=== PATIENT | female | born 1965 | race Asian ===

== ENCOUNTER → 2020-11-28 10:30 | Outpatient (CLI) | payer OTHER, SELFPAY ==
--- NOTE | ~2020-11-28 | US_ITS ---
EXAMINATION: US soft tissue head and neck EXAM DATE: 11/28/2020 10:46 INDICATION: Lymphadenopathy. Palpable area left side of neck for one year. TECHNIQUE: Multiple grayscale and Doppler images of the symptomatic left neck region were obtained (vianney craig a technologist who performed the scan) and subsequently reviewed. There is no prior study for darlene staley. FINDINGS: Scanning in the left neck region with palpable abnormality demonstrates a round well-circumscribed hy poechoic soft tissue nodule measuring 6 x 6 x 7 mm. No fatty hilum within this which would be expecte d for a reactive lymph node. IMPRESSION: Small round soft tissue nodule most likely lymph node with abnormal morphology. History o f this being unchanged for one year suggests more likely benign histology but neck CT with contrast i ndicated. Reviewed, dictated and finalized at location A. OND POWDER TECHNICIAN IMPRESSION: Small round soft tissue nodule most likely lymph node with abnormal morphology. History of this being unchanged for one year suggests more likely benign histology but neck CT with contrast indicated.
== END ==
PROVIDERS: PCP Emergency Medicine; Visit Provider Emergency Medicine
DX: R59.1 Generalized enlarged lymph nodes (principal)
CPT/HCPCS: 76536

== ENCOUNTER → 2020-12-09 13:58 | Outpatient (CLI) | payer OTHER, SELFPAY ==
--- NOTE | ~2020-12-09 | CT_ITS ---
EXAMINATION: CT soft tissue neck w con DATE: 12/09/2020 14:31 INDICATION: Lymphadenopathy. Left neck mass. TECHNIQUE: Computed tomography (CT) of the neck was performed with 75 mL Omnipaque-350 intravenous co ntrast. Automated exposure control and iterative reconstruction technique were employed. The dose-joi gth product was 353.13 mGy-cm. COMPARISON: Ultrasound 11/28/2020 FINDINGS: There are no pathologically enlarged lymph nodes. There is no visible plaque in the proxima l internal carotid arteries. There are calcifications in the palatine tonsils bilaterally. There is m ild cervical spondylosis. IMPRESSION: 1. No abnormal neck mass or lymphadenopathy. Reviewed, dictated and finalized at location B. DRIVER
== END ==
PROVIDERS: PCP Emergency Medicine; Visit Provider Emergency Medicine
DX: R59.1 Generalized enlarged lymph nodes (principal)
CPT/HCPCS: 70491; Q9967

== ENCOUNTER → 2021-01-23 14:59 | Outpatient (CLI) | payer OTHER, SELFPAY ==
--- NOTE | ~2021-01-23 | XR_ITS ---
EXAMINATION: XR chest 2V EXAM DATE: 01/23/2021 15:21 INDICATION: Cough. TECHNIQUE: Frontal and lateral projections of the chest obtained and reviewed. Comparison is made to prior examination from 12/27/2017. FINDINGS: The lungs are clear. There are no pleural effusions. The cardiomediastinal silhouette is within normal limits. There is no pneumothorax suspected. The bones and soft tissues are unremarkab le. IMPRESSION: No acute cardiopulmonary findings. Reviewed, dictated and finalized at location A. ND PLANNER
== END ==
PROVIDERS: PCP Emergency Medicine; Visit Provider Emergency Medicine
DX: R05 Cough (principal)
CPT/HCPCS: 71046

== ENCOUNTER → 2021-01-24 08:02 | Outpatient (CLI) | payer OTHER, SELFPAY ==
[2021-01-25 08:28] LABS: SARS-CoV-2 RNA PCR Negative
== END ==
PROVIDERS: PCP Emergency Medicine; Visit Provider Emergency Medicine
DX: R68.89 Other general symptoms and signs (principal); Z20.822 Contact with and (suspected) exposure to COVID-19
CPT/HCPCS: C9803; U0003; U0005

== ENCOUNTER → 2021-07-22 07:59 | Outpatient (CLI) | payer OTHER, SELFPAY ==
--- NOTE | ~2021-07-22 | US_ITS ---
EXAMINATION: US abdomen complete EXAM DATE: 07/22/2021 08:24 INDICATION: Hepatitis B, fatty liver. TECHNIQUE: Multiple grayscale and Doppler images of the complete abdomen were obtained (by a technolo reta who performed the scan) and subsequently reviewed. There is no prior study for comparison. FINDINGS: The abdominal aorta is normal in caliber. Visualized portion IVC is patent. The pancreatic head a nd body are normal in appearance. The pancreatic tail is not visualized. There is echogenic liver parenchyma, hepatic steatosis. There are no focal liver lesions identified. There is no evidence of intrahepatic biliary duct dilation. Portal venous flow was seen in the he patopedal, normal direction and has normal Doppler waveform. Common bile duct measures 3 mm, which is normal. The gallbladder wall is normal in thickness, with ex pected amount of distention. No sonographic evidence of pericholecystic fluid. There is no cholelit hiases. Technologist performing exam reports patient did not demonstrate sonographic Mary's sign. Please note that this sign is less reliable in patients who have received pain medication. Right kidney: There is normal contour and echogenicity. It measures 11.1 x 5.0 x 6.1 centimeters. There are no focal renal lesions identified. There is no hydronephrosis. Left kidney: There is normal contour and echogenicity. It measures 10.5 x 5.7 x 5.5 centimeters. T here are no focal renal lesions identified. There is no hydronephrosis. The spleen measures 8.6 centimeters and is morphologically normal. IMPRESSION: 1. Hepatic steatosis. Reviewed, dictated and finalized at location D. IMPRESSION: 1. Hepatic steatosis.
== END ==
PROVIDERS: PCP Emergency Medicine; Visit Provider Emergency Medicine
DX: B19.10 Unspecified viral hepatitis B without hepatic coma (principal); K76.0 Fatty (change of) liver, not elsewhere classified
CPT/HCPCS: 76700

== ENCOUNTER → 2021-08-01 16:14 | Outpatient (CLI) | payer OTHER, SELFPAY ==
--- NOTE | ~2021-08-01 | MM_ITS ---
EXAMINATION: MM screening rene BI w wilfred HISTORY: Screening TECHNIQUE: Craniocaudal and mediolateral oblique 3-D tomosynthesis images were obtained and synthetic 2-D images were generated. CAD analysis was submitted and interpreted. COMPARISON: No prior mammogram is available for comparison at this institution. BREAST PARENCHYMAL COMPOSITION: There are scattered areas of fibroglandular density. FINDINGS: There is no evidence of suspicious mass, calcification, or architectural distortion to sugg est malignancy in either breast. There has been no suspicious interval change. IMPRESSION: 1. No mammographic evidence of malignancy. 2. Recommend routine screening mammography in one year. BI-RADS Category 1: Negative Reviewed, dictated and finalized at location A.
== END ==
PROVIDERS: PCP Emergency Medicine; Visit Provider Emergency Medicine
DX: Z12.31 Encounter for screening mammogram for malignant neoplasm of breast (principal)
CPT/HCPCS: 77063; 77067

== ENCOUNTER 2022-08-24 01:32 | Day surgery (SDC) | payer OTHER, SELFPAY ==
[2022-08-24 12:01] VITALS: BP 141/88; PULSE 72; RESP 18; TEMP 36.8; O2SAT 99
[2022-08-24] MEDS: LACTATED RINGERS 1,000 ML 150 ML IV CONT (12:19)
--- NOTE | 2022-08-24 12:24 | PM.HPGS ---
History of Present Illness History of Present Illness Consent: Risks, benefits, and alternatives have been discussed and questions answered. Patient agrees to proceed with procedure. Chief complaint: occult GI bleed, GERD, Epigastric pain Narrative: Mariana Carrillo is a 56 year old female who has been found to have occult blood her stools. She states that occasionally she will see some red blood in her stools and the surgeon told her that she may have a fissure. She does not have pain on passage of stool but occasionally sees some blood when wiping.She does get occasional heartburn for which she takes omeprazole. Review of Systems Review of Systems: All systems reviewed & are unremarkable except as noted in HPI and below PMFSH Past Medical History Medical History GERD (gastroesophageal reflux disease) Hepatitis B carrier Surgical History Surgical History H/O nephrolithotomy with removal of calculi H/O: hysterectomy History of delivery Family History Family History Father Hypertension Mother Hepatitis B Social History Social History Smoking status: Never smoker Alcohol intake: never Substance use: never Substance use type: does not use Living arrangements: with family Spiritual care concerns: No Meds Home Medications and Allergies Home Medications Medication Instructions Recorded Confirmed Type calcium carbonate 600 mg-vitamin 1 cap PO DAILY 08/18/21 08/05/22 History D3 12.5 mcg (500 unit) capsule (Calcium 600 with Vitamin D3) entecavir 0.5 mg tablet 0.5 mg PO DAILY 08/18/21 08/05/22 History omeprazole 20 mg capsule,delayed 20 mg PO DAILY 08/18/21 08/05/22 History release Allergies Allergy/AdvReac Type Severity Reaction Status Date / Time No Known Allergies Allergy Verified 08/24/22 12:01 Vital Signs Vital Signs - 24 hr 08/24/22 12:01 Temperature 36.8 C Pulse Rate 72 Respiratory Rate 18 Blood Pressure 141/88 H Pulse Oximetry 99 Oxygen Delivery Room Air Exam Const: General: alert Orientation/consciousness: patient oriented x3 Resp: Auscultation: clear to auscultation bilaterally Cardio: Rhythm: regular rhythm GI: GI Palp: Yes Soft to palpation and No Tenderness to palpation present (GI) Neuro: General: patient oriented x3 Assessment and Plan Assessment and plan (1) Blood in stool: Code(s): K92.1 - Melena Status: Acute Assessment and Plan: EGD with possible biopsy or dilatation or cautery. Colonoscopy with possible biopsy or polypectomy or cautery or injection of substances.
--- NOTE | 2022-08-24 12:47 | P.PNAN_ITS ---
Anes - Initial Pre Proc Eval Procedure: Operation Date: 08/24/22 13:00 Proposed Procedures p Esophagogastroduodenoscopy & Colonoscopy - Trino Pena MD Date/Time: 08/24/22 12:47 Surgeon: Trino Pena MD Pre Op Diagnosis: occult GI bleed, GERD, Epigastric pain Patient Data Age: 56 Gender: F Height: 1.6 m Weight: 78.6 kg Last Vital Signs Temp 98.2 F 08/24/22 12:01 Pulse 72 08/24/22 12:01 Resp 18 08/24/22 12:01 BP 141/88 H 08/24/22 12:01 Pulse Ox 99 08/24/22 12:01 O2 Del Method Room Air 08/24/22 12:01 Allergies Allergy/AdvReac Type Severity Reaction Status Date / Time No Known Allergies Allergy Verified 08/24/22 12:01 Home Medications Medication Instructions Recorded Confirmed Type calcium carbonate 600 mg-vitamin 1 cap PO DAILY 08/18/21 08/05/22 History D3 12.5 mcg (500 unit) capsule (Calcium 600 with Vitamin D3) entecavir 0.5 mg tablet 0.5 mg PO DAILY 08/18/21 08/05/22 History omeprazole 20 mg capsule,delayed 20 mg PO DAILY 08/18/21 08/05/22 History release Patient hx anesthesia problems: none Family hx anesthesia problems: none Results Review: All pre-operative results and documents have been reviewed as part of the pre- operative evaluation. [facility] Past Medical History Medical History (Updated 08/24/22 @ 12:25 by Trino Pena MD) GERD (gastroesophageal reflux disease) Hepatitis B carrier Surgical History Surgical History (Updated 08/18/21 @ 10:49 by Nataliia Fry CMA) H/O nephrolithotomy with removal of calculi H/O: hysterectomy History of delivery Family History Family History (Updated 08/18/21 @ 10:33 by Nataliia Fry CMA) Father Hypertension Mother Hepatitis B Social History Social History (Updated 08/18/21 @ 10:34 by Nataliia Fry CMA) Smoking status: Never smoker Alcohol intake: never Substance use: never Substance use type: does not use Living arrangements: with family Spiritual care concerns: No Anes - Eval Final PreProcedure Day of Procedure 10/03/22 12:47 Patient weight: obese Heart: regular rate and rhythm Lungs: clear to auscultation Airway: Mallampati scale class II Neurological: alert and oriented Last oral intake: >/= 8 hours ASA classification: II Emergent: no Anesthetic plan: proceed Anesthesia type and monitoring: general GIVS and standard monitoring Results Review: All pre-operative results and documents have been reviewed as part of the pre- operative evaluation. Informed Consent: The patient's anesthetic plan and its attendant risks and benefits were discussed with the patient/family/POA. Questions were solicited and answers provided to the satisfaction of the patient/family/POA.
[2022-08-24 13:47] VITALS: BP 111/70; PULSE 76; RESP 22; O2SAT 99
[2022-08-24 13:57] VITALS: BP 110/68; PULSE 77; RESP 17; O2SAT 97
--- NOTE | 2022-08-24 13:59 | SUR.OPER ---
EGD START: 1332; END: 1336. COLONOSCOPY START: 1343; END 1345.
[2022-08-24 14:07] VITALS: BP 128/63; PULSE 68; RESP 20; O2SAT 99
== END 2022-08-24 14:29 | disposition home or self-care (01) ==
PROVIDERS: PCP Emergency Medicine; Visit Provider Internal Medicine Gastroenterology
PROC: 0DJ08ZZ Inspection of Upper Intestinal Tract, Via Natural or Artificial Opening Endoscopic (ICD-10-PCS; CPT 43235; principal; 2022-08-24 13:00)
DX: Z12.11 Encounter for screening for malignant neoplasm of colon (principal); K92.1 Melena; K21.00 Gastro-esophageal reflux disease with esophagitis, without bleeding; E66.9 Obesity, unspecified; Z68.30 Body mass index [BMI] 30.0-30.9, adult
CPT/HCPCS: 45378; 43239; 87081; 88305; J2704; J7120

== ENCOUNTER 2022-10-12 00:42 | Day surgery (SDC) | payer OTHER, SELFPAY ==
[2022-09-29 12:52] VITALS: BMI 30.1
[2022-10-12 13:13] VITALS: BP 139/72; PULSE 69; RESP 16; TEMP 36.6; O2SAT 98
[2022-10-12] MEDS: LACTATED RINGERS 1,000 ML 150 ML IV CONT (13:15)
--- NOTE | 2022-10-12 13:31 | WPDANESEPPF ---
Anes - Initial Pre Proc Eval Procedure: Operation Date: 10/12/22 14:00 Proposed Procedures p Colonoscopy - Trino Pena MD Date/Time: 10/12/22 13:31 Surgeon: Trino Pena MD Pre Op Diagnosis: Gi bleed, poor prep Patient Data Age: 57 Gender: F Height: 1.6 m Weight: 78.4 kg Last Vital Signs Temp 98 F 10/12/22 13:13 Pulse 69 10/12/22 13:13 Resp 16 10/12/22 13:13 BP 139/72 10/12/22 13:13 Pulse Ox 98 10/12/22 13:13 O2 Del Method Room Air 10/12/22 13:13 Allergies Allergy/AdvReac Type Severity Reaction Status Date / Time No Known Allergies Allergy Verified 10/12/22 13:11 Home Medications Medication Instructions Recorded Confirmed Type calcium carbonate 600 mg-vitamin 1 cap PO DAILY 08/18/21 10/12/22 History D3 12.5 mcg (500 unit) capsule (Calcium 600 with Vitamin D3) entecavir 0.5 mg tablet 0.5 mg PO DAILY 08/18/21 10/12/22 History omeprazole 20 mg capsule,delayed 20 mg PO DAILY 08/18/21 10/12/22 History release Patient hx anesthesia problems: none Family hx anesthesia problems: none Results Review: All pre-operative results and documents have been reviewed as part of the pre-operative evaluation. [facility] Past Medical History Medical History GERD (gastroesophageal reflux disease) Hepatitis B carrier Surgical History Surgical History H/O nephrolithotomy with removal of calculi H/O: hysterectomy History of delivery Family History Family History Father Hypertension Mother Hepatitis B Social History Social History Smoking status: Never smoker Alcohol intake: never Substance use: never Substance use type: does not use Living arrangements: with family Spiritual care concerns: No Anes - Eval Final PreProcedure Day of Procedure 10/12/22 13:31 Patient weight: obese Heart: regular rate and rhythm Lungs: clear to auscultation Airway: Mallampati scale class II Neurological: alert and oriented Last oral intake: >/= 8 hours ASA classification: II Emergent: no Anesthetic plan: proceed Anesthesia type and monitoring: general GIVS and standard monitoring Results Review: All pre-operative results and documents have been reviewed as part of the pre-operative evaluation. Informed Consent: The patient's anesthetic plan and its attendant risks and benefits were discussed with the patient/family/POA. Questions were solicited and answers provided to the satisfaction of the patient/family/POA.
--- NOTE | 2022-10-12 13:53 | PM.HPGS ---
History of Present Illness History of Present Illness Consent: Risks, benefits, and alternatives have been discussed and questions answered. Patient agrees to proceed with procedure. Chief complaint: Gi bleed, poor prep Narrative: Mariana Carrillo is a 57 year old female Referred for colon cancer screening. Review of Systems Review of Systems: All systems reviewed & are unremarkable except as noted in HPI and below PMFSH Past Medical History Medical History GERD (gastroesophageal reflux disease) Hepatitis B carrier Surgical History Surgical History H/O nephrolithotomy with removal of calculi H/O: hysterectomy History of delivery Family History Family History Father Hypertension Mother Hepatitis B Social History Social History Smoking status: Never smoker Alcohol intake: never Substance use: never Substance use type: does not use Living arrangements: with family Spiritual care concerns: No Meds Home Medications and Allergies Home Medications Medication Instructions Recorded Confirmed Type calcium carbonate 600 mg-vitamin 1 cap PO DAILY 08/18/21 10/12/22 History D3 12.5 mcg (500 unit) capsule (Calcium 600 with Vitamin D3) entecavir 0.5 mg tablet 0.5 mg PO DAILY 08/18/21 10/12/22 History omeprazole 20 mg capsule,delayed 20 mg PO DAILY 08/18/21 10/12/22 History release Allergies Allergy/AdvReac Type Severity Reaction Status Date / Time No Known Allergies Allergy Verified 10/12/22 13:11 Vital Signs Vital Signs - 24 hr 10/12/22 13:13 Temperature 36.6 C Pulse Rate 69 Respiratory Rate 16 Blood Pressure 139/72 Pulse Oximetry 98 Oxygen Delivery Room Air Exam Resp: Auscultation: clear to auscultation bilaterally Cardio: Rate: regular rate Rhythm: regular rhythm GI: GI Palp: Yes Soft to palpation and No Tenderness to palpation present (GI) Assessment and Plan Assessment and plan (1) Colon cancer screening: Code(s): Z12.11 - Encounter for screening for malignant neoplasm of colon Status: Acute Assessment and Plan: Colonoscopy with possible biopsy or polypectomy or cautery or injection of substances.
[2022-10-12] MEDS: SIMETHICONE ORAL SUSPENSION 20 MG/0.3 ML 30 ML BOTTLE 0.6 ML IRRIGATION (14:37)
[2022-10-12 14:45] VITALS: BP 161/98; PULSE 85; RESP 20; O2SAT 97
[2022-10-12 14:55] VITALS: BP 157/95; PULSE 78; RESP 20; O2SAT 99
[2022-10-12 15:05] VITALS: BP 155/107; PULSE 77; RESP 23; O2SAT 100
== END 2022-10-12 15:39 | disposition home or self-care (01) ==
PROVIDERS: PCP Emergency Medicine; Visit Provider Internal Medicine Gastroenterology
PROC: 0DJD8ZZ Inspection of Lower Intestinal Tract, Via Natural or Artificial Opening Endoscopic (ICD-10-PCS; CPT 45378; principal; 2022-10-12 14:00)
DX: Z12.11 Encounter for screening for malignant neoplasm of colon (principal); K64.8 Other hemorrhoids; K21.9 Gastro-esophageal reflux disease without esophagitis; B18.1 Chronic viral hepatitis B without delta-agent; E66.9 Obesity, unspecified; Z68.30 Body mass index [BMI] 30.0-30.9, adult
CPT/HCPCS: 45378; J2704; J7120

== ENCOUNTER → 2022-11-24 12:51 | Outpatient (CLI) | payer OTHER, SELFPAY ==
--- NOTE | ~2022-11-24 | MM_ITS ---
EXAMINATION: MM screening rene BI w wilfred HISTORY: Screening mammogram TECHNIQUE: Craniocaudal and mediolateral oblique 3-D tomosynthesis images were obtained and synthetic 2-D images were generated. CAD analysis was submitted and interpreted. COMPARISON: 08/01/2021 BREAST PARENCHYMAL COMPOSITION: There are scattered areas of fibroglandular density. FINDINGS: No suspicious mass, calcification, or architectural distortion are identified in either ken ast to suggest malignancy. There has been no suspicious interval change. IMPRESSION: 1. No mammographic evidence of malignancy. 2. Recommend routine screening mammography in one year. BI-RADS Category 1: Negative Reviewed, dictated and finalized at location A. H EXAMINER
== END ==
PROVIDERS: PCP Emergency Medicine; Visit Provider Emergency Medicine
DX: Z12.31 Encounter for screening mammogram for malignant neoplasm of breast (principal)
CPT/HCPCS: 77063; 77067

== ENCOUNTER 2023-01-01 08:38 | Outpatient (CLI) | payer OTHER, SELFPAY ==
--- NOTE | 2023-01-01 08:43 | EST_ITS ---
Patient Info Name: Mariana Carrillo Age: 57 years : 1965 Gender: Female Ht: 63 in Wt: 170 lbs BSA: 1.88 m2 HR: 63 bpm BP: 135 / 80 mmHg Heart Rhythm: Sinus Rhythm Technical Quality: Fair Exam Date: 01/01/2023 9:58 AM Exam Location: [facility] Patient Status: Outpatient Admit Date: 01/01/2023 Staff Ordering Physician: Zenon Rosales DO Field Service Supervisor: Ary Rico RDCS Attending Provider: DR. ROSALES Referring Physician: Darron SCOTT; Exam Type: CA stress echo Study Info Indications R07.9 - Chest pain, unspecified Treadmill exercise stress echocardiogram is performed. Summary 1. 1. Negative Collin exercise stress test for ischemic ST changes by ECG criteria. 2. 2. Good functional capacity, achieving 8.9 METs of workload. 3. 3. Development of RBBB with increase in heart rate. 4. 4. Appropriate HR response to exercise. 5. 5. Appropriate HR recovery at 1 minute post exercise. 6. 6. Negative stress echocardiogram for ischemia by wall motion analysis. 7. 7. Patient informed of the above results. Stress Echo Findings Left Ventricle Appropriate increase in LV endocardial thickening with systole. Appropriate augmentation of contractility with systole. No wall motion abnormality. Left Ventricle Normal LV systolic function, no wall motion abnormality. Protocol: Collin Stress ECG Details Stage: REST Duration (min): 1 min : 54 sec Speed (mph): 0.0 Grade (%): 0 HR (bpm): 59 SBP (mmHg): 135 DBP (mmHg): 80 METS: --- Stage: REST Duration (min): 11 min : 0 sec Speed (mph): 0.0 Grade (%): 0 HR (bpm): 59 SBP (mmHg): 135 DBP (mmHg): 80 METS: --- Stage: REST Duration (min): 13 min : 5 sec Speed (mph): 0.0 Grade (%): 0 HR (bpm): 66 SBP (mmHg): 135 DBP (mmHg): 80 METS: --- Stage: STAGE 1 Duration (min): 1 min : 0 sec Speed (mph): 1.7 Grade (%): 10 HR (bpm): 87 SBP (mmHg): 135 DBP (mmHg): 80 METS: --- Stage: STAGE 1 Duration (min): 2 min : 0 sec Speed (mph): 1.7 Grade (%): 10 HR (bpm): 115 SBP (mmHg): 135 DBP (mmHg): 80 METS: --- Stage: STAGE 1 Duration (min): 3 min : 0 sec Speed (mph): 1.7 Grade (%): 10 HR (bpm): 101 SBP (mmHg): 132 DBP (mmHg): 77 METS: --- Stage: STAGE 2 Duration (min): 1 min : 0 sec Speed (mph): 2.5 Grade (%): 12 HR (bpm): 107 SBP (mmHg): 132 DBP (mmHg): 77 METS: --- Stage: STAGE 2 Duration (min): 2 min : 0 sec Speed (mph): 2.5 Grade (%): 12 HR (bpm): 107 SBP (mmHg): 173 DBP (mmHg): 82 METS: --- Stage: STAGE 2 Duration (min): 3 min : 0 sec Speed (mph): 2.5 Grade (%): 12 HR (bpm): 138 SBP (mmHg): 173 DBP (mmHg): 82 METS: --- Stage: STAGE 3 Duration (min): 1 min : 0 sec Speed (mph): 3.4 Grade (%): 14 HR (bpm): 148 SBP (mmHg): 173 DBP (mmHg): 82 METS: --- Stage: STAGE 3 Duration (min
--- NOTE | 2023-01-01 08:43 | ECHO_ITS ---
Patient Info Name: Mariana Carrillo Age: 57 years : 1965 Gender: Female Ht: 63 in Wt: 170 lbs BSA: 1.88 m2 HR: 55 bpm BP: 129 / 74 mmHg Technical Quality: Fair Exam Date: 01/01/2023 9:13 AM Exam Location: [facility] Patient Status: Outpatient Admit Date: 01/01/2023 Staff Ordering Physician: Zenon Rob DO Pipe Washer: Hannah Potts RDCS Attending Provider: Zenon Rob DO Referring Physician: Darron SCOTT; Exam Type: CA echo dop color flow w con Study Info Indications R06.09 - Other forms of dyspnea Complete two-dimensional, color flow and Doppler transthoracic echocardiogram is performed. Summary 1. Complete two-dimensional, color flow and Doppler transthoracic echocardiogram is performed. 2. Left ventricular chamber dimension is normal. 3. Left ventricular systolic function is normal, estimated at 55-60%. 4. The left ventricular diastolic function is abnormal. 5. E/e' 10 is mildly elevated. 6. Global longitudinal strain is abnormal at -14.6%. 7. Left atrial chamber dimension is mildly enlarged. 8. There is trace tricuspid valve regurgitation. 9. No pulmonary hypertension, estimated pulmonary arterial systolic pressure is 22 mmHg. Left Ventricle E/e' 10 is mildly elevated. Global longitudinal strain is abnormal at -14.6%. Left ventricular chamber dimension is normal. Left ventricular systolic function is normal, estimated at 55-60%. The left ventricular diastolic function is abnormal. Right Ventricle Right ventricular chamber dimension is normal. Right ventricular systolic function is normal. Left Atria Left atrial chamber dimension is mildly enlarged. Right Atria Right atrial chamber dimension is normal. Aortic Valve The aortic valve is trileaflet. There is no aortic valve stenosis. There is no aortic valve regurgitation. Pulmonic Valve There is no pulmonic regurgitation. Mitral Valve There is no mitral valve stenosis. There is no mitral valve regurgitation. Tricuspid Valve There is trace tricuspid valve regurgitation. No pulmonary hypertension, estimated pulmonary arterial systolic pressure is 22 mmHg. Pericardium/Pleural There is no pericardial effusion. Inferior Vena Cava Normal inferior vena cava with >50% collapse upon inspiration consistent with normal right atrial pressure, 5 mmHg. Aorta The aortic root size at the sinus of Valsalva is normal. Left Ventricular Outflow Tract Name Value Normal LVOT 2D LVOT Diameter 1.93 cm LVOT Doppler LVOT Peak Gradient 4 mmHg LVOT Mean Gradient 3 mmHg LVOT VTI 27.10 cm LVOT VTI/AV VTI Ratio 0.73 LVOT Stroke Volume 79.62 ml LVOT CO 4.51 l/min LVOT CI 2.40 L/min/m2 Pulmonic Valve Name Value Normal RVOT Doppler
== END 2023-01-01 08:39 | disposition home or self-care (01) ==
LOC: ANHCARD 08:39
PROVIDERS: PCP Emergency Medicine; Visit Provider Internal Medicine Cardiovascular Disease
DX: R06.09 Other forms of dyspnea (principal); R07.9 Chest pain, unspecified
CPT/HCPCS: 93306; 93351; C8929

== ENCOUNTER 2024-05-10 11:42 | Outpatient (CLI) | payer OTHER, SELFPAY ==
--- NOTE | ~2024-05-10 | US_ITS ---
EXAMINATION: US thyroid DATE: 05/10/2024 11:59 INDICATION: Thyroid nodule TECHNIQUE: Multiple ultrasound images of the thyroid were obtained. COMPARISON: None. FINDINGS: The right thyroid lobe measures 4.8 x 1.5 x 1.5 cm. The left thyroid lobe measures 4.2 x 1.3 x 1.7 c m. 5 mm wider than tall solid hypoechoic nodule without echogenic foci in the right thyroid lobe (TI -RADS 4, moderately suspicious , FNA if >=1.5 cm, annual followup is >=1 cm). There is normal echotex ture, echogenicity and vascular flow throughout the remainder of the thyroid gland. IMPRESSION: 1. 5 mm TI RADS 4 right thyroid nodule which is significantly below criteria for either biopsy or fol low-up. Recommend clinical followup with repeat imaging if there are changes on physical exam. Reviewed, dictated and finalized at location A. IMPRESSION: 1. 5 mm TI RADS 4 right thyroid nodule which is significantly below criteria fo r either biopsy or follow-up. Recommend clinical followup with repeat imaging i f there are changes on physical exam.
== END 2024-05-10 11:43 ==
LOC: MICIMG 11:43
PROVIDERS: PCP Emergency Medicine; Visit Provider Emergency Medicine
DX: E04.1 Nontoxic single thyroid nodule (principal)
CPT/HCPCS: 76536

== ENCOUNTER 2024-06-02 10:29 | Outpatient (CLI) | payer OTHER, SELFPAY ==
--- NOTE | ~2024-06-02 | XR_ITS ---
EXAMINATION: XR UGIAC wo kub DATE: 06/02/2024 11:00 INDICATION: Early satiety TECHNIQUE: Thick barium contrast with gas effervescent crystals were administered orally. Fluoroscop ic images of the esophagus, stomach, and proximal duodenum were obtained in various projections. The reafter, overhead images of the abdomen were performed. 45 fluoroscopic images. FINDINGS: Comparison upper GI dated 10/22/2010 The esophagus is normal in caliber, without mucosal lesions or strictures. There is normal esophagea l peristalsis. There is no hiatal hernia. No gastroesophageal reflux witnessed during the course of the study. There is a large amount of debris in the stomach. No obstruction to flow of contrast. No mucosal abno rmalities or diverticula. IMPRESSION: 1. Large amount of complex debris in the stomach which may represents recently ingested material, al though a bezoar cannot be excluded. No obstruction to flow of contrast. Otherwise, unremarkable upper GI examination. Reviewed, dictated and finalized at location B. IMPRESSION: 1. Large amount of complex debris in the stomach which may represents recently ingested material, although a bezoar cannot be excluded. No obstruction to coleen w of contrast. Otherwise, unremarkable upper GI examination.
== END 2024-06-02 10:30 ==
PROVIDERS: PCP Emergency Medicine; Visit Provider Emergency Medicine
DX: R68.81 Early satiety (principal)
CPT/HCPCS: 74240; 74246

== ENCOUNTER 2024-10-04 08:53 | Outpatient (CLI) | payer OTHER, SELFPAY ==
--- NOTE | ~2024-10-04 | NM_ITS ---
EXAMINATION: NM hepatobiliary w pharm DATE: 10/04/2024 10:57 INDICATION: Upper abdominal pain. COMPARISON: None. TECHNIQUE: 4.9 mCi Tc-99m mebrofenin (Choletec) was administered intravenously. Scintigraphic images of the abdomen were obtained for one hour. Then, 1.7 mcg sincalide (Kinevac) IV was administered, an d imaging was continued for 30 minutes. FINDINGS: There is normal clearance of radiotracer from the blood pool. There is homogeneous tracer u ptake by the liver. Activity progresses to the bowel and gallbladder. Gallbladder ejection fraction (GBEF) was 25%. Note that most patients with gallbladder dysfunction have GBEF < 35%, which overlaps with the broad normal range of 10-90%. IMPRESSION: 1. Gallbladder ejection fraction in the lower range of normal. Note that this value overlaps with th e range of values that may be seen with gallbladder dysfunction and/or chronic cholecystitis if there is appropriate clinical correlation. Reviewed, dictated and finalized at location A. TOOLER IMPRESSION: 1. Gallbladder ejection fraction in the lower range of normal. Note that this value overlaps with the range of values that may be seen with gallbladder dysfu nction and/or chronic cholecystitis if there is appropriate clinical correlatio nShae
== END 2024-10-04 08:54 | disposition home or self-care (01) ==
PROVIDERS: PCP Emergency Medicine; Visit Provider Emergency Medicine
DX: R10.10 Upper abdominal pain, unspecified (principal)
CPT/HCPCS: 78227; A9537; J2805

== ENCOUNTER 2024-10-06 11:00 | Outpatient (CLI) | payer OTHER, SELFPAY ==
--- NOTE | ~2024-10-06 | US_ITS ---
EXAMINATION: US right upper quadrant DATE: 10/06/2024 12:02 INDICATION: Upper abdominal pain, unspecified. TECHNIQUE: Multiple grayscale and Doppler ultrasound images of the abdomen were obtained. COMPARISON: Ultrasound 07/22/2021 FINDINGS: The visualized portions of the head and body of the pancreas are normal. There is diffuse h epatic steatosis. There is normal flow in main portal vein. The gallbladder is normal in size. No gal lstones or gallbladder wall thickening. There is no sonographic Mary's sign. The common duct is nor mal and measures 4 mm. IMPRESSION: 1. Diffuse hepatic steatosis. Reviewed, dictated and finalized at location A. ER ATTENDANT
== END 2024-10-06 11:01 | disposition home or self-care (01) ==
PROVIDERS: PCP Emergency Medicine; Visit Provider Emergency Medicine
DX: K76.0 Fatty (change of) liver, not elsewhere classified (principal)
CPT/HCPCS: 76705

== ENCOUNTER 2024-10-25 15:01 | Outpatient (CLI) | payer OTHER, SELFPAY ==
--- NOTE | ~2024-10-25 | MM_ITS ---
EXAMINATION: MM screening rene BI w wilfred HISTORY: Screening TECHNIQUE: Craniocaudal and mediolateral oblique 3-D tomosynthesis images were obtained and synthetic 2-D images were generated. CAD analysis was submitted and interpreted. COMPARISON: Comparison to multiple prior studies sequentially, with oldest reviewed study dated 08/01. BREAST PARENCHYMAL COMPOSITION: Not dense: There are scattered areas of fibroglandular density. FINDINGS: There is no evidence of suspicious mass, calcification, or architectural distortion to sugg est malignancy in either breast. There has been no suspicious interval change. IMPRESSION: 1. No mammographic evidence of malignancy. 2. Recommend routine screening mammography in one year. BI-RADS Category 1: Negative Reviewed, dictated and finalized at location B. SH MOLDER
--- NOTE | ~2024-10-25 | DEXA_ITS ---
Bone Density Report Name: JUN STEVENS Age: 59 Sex: Female Ethnicity: White Date of : 1965 Indication: postmenopausal; screening for osteoporosis; hysterectomy; Referring Provider: ANGE PARTIDA Study: Bone densitometry was performed. Exam Date: October 25, 2024 Accession number: [id number] Bone Density: Region BMD T-score Z-score Classification AP Spine(L1-L4) 1.045 0.0 1.4 Normal Femoral Neck (Left) 0.624 -2.0 -0.7 Osteopenia Total Hip (Left) 0.847 -0.8 0.2 Normal Femoral Neck (Right) 0.681 -1.5 -0.2 Osteopenia Total Hip (Right) 0.888 -0.4 0.5 Normal Total Hip Mean 0.867 -0.6 0.4 Normal World Health Organization criteria for BMD impression classify patients as: Normal (T-score at or above -1.0), Osteopenia (T-score between -1.0 and -2.5), or Osteoporosis (T-score at or below -2.5). 10-year Fracture Risk(1): Major Osteoporotic Fracture 8.8% Hip Fracture 1.0% Reported Risk Factors: [place] (), Neck BMD=0.624, BMI=32.4 (1) FRAX(R) Version 3.08. Fracture probability calculated for an untreated patient. Fracture probability may be lower if the patient has received treatment. Previous Exams: Region Exam Age BMD T-score BMD Change BMD Change Date g/cm2 vs Baseline vs Previous AP Spine (L1-L4) 10/25/2024 59 1.045 0.0 -0.063 (-5.7%) -0.063 (-5.7%) 04/08/2019 53 1.108 0.6 Total Hip(Left) 10/25/2024 59 0.847 -0.8 -0.059 (-6.5%) -0.059 (-6.5%) 04/08/2019 53 0.905 -0.3 Total Hip(Right) 10/25/2024 59 0.888 -0.4 -0.018 (-2.0%) -0.018 (-2.0%) 04/08/2019 53 0.906 -0.3 *Denotes significance at 95% confidence level, LSC for AP Spine = 0.022 g/cm2, LSC for Total Hip = 0.027 g/cm2 Clinical Information Provided by Patient: Has used the following medications: Vitamin D Has the following medical conditions: Hysterectomy Patient maximum height was 63.0 Menopause Age: 51 Does not regularly consume dairy products Onset of menses at age 13 Number of children 2 Impression: The patient has low bone mass, based on the Left Femoral Neck T-score. The patient has an estimated ten-year risk of hip fracture of 1% and an estimated ten-year risk of major fracture of 8.8%, based on the WHO FRAX algorithm. The BMD for the AP Spine (L1-L4) decreased, changing by -5.7% since the last DXA exam. The BMD for the Total Hip(Left) decreased, changing by -6.5% since the last DXA exam. Discussion: BONE DENSITY IS LOW AT ONE OR MORE SKELETAL SITES. This patient's lowest T-score is low at one or more skeletal sites. It meets the World Health Organization's (WHO) criteria for ?low bone mass? (T-score between -1.0 and -2.5). The patient's 10-year risk of fracture as calculated by FRAX is less than the threshold where pharmacological therapy is recommended by the National Osteoporosis Foundation (NOF). However, all treatment decisions require clinical judgment and consideration of individual patient factors, including patient preferences, comorbidities, previous drug use, risk factors not captured in the FRAX model (e.g., frailty, falls, vitamin D deficiency, increased bone turnover, interval significant decline in bone density) and possible under or overestimation of fracture risk by FRAX. The patient should follow a healthful lifestyle (good nutrition with adequate calcium and vitamin D, and appropriate weight-bearing exercise). Follow-Up: Consider repeating this study in 2 years to reassess this patient's status, or sooner if there is some new clinical indication. Reported by: TRAE on 10/25/2024 3:32:00 PM. Reviewed, dictated and finalized at location AShae COTTRELL
== END 2024-10-25 15:02 | disposition home or self-care (01) ==
LOC: ANHIMG 15:03
PROVIDERS: PCP Emergency Medicine; Visit Provider Emergency Medicine
DX: Z12.31 Encounter for screening mammogram for malignant neoplasm of breast (principal); M85.89 Other specified disorders of bone density and structure, multiple sites; Z13.820 Encounter for screening for osteoporosis
CPT/HCPCS: 77063; 77067; 77080

== ENCOUNTER 2025-05-05 08:44 | Outpatient (CLI) | payer OTHER, SELFPAY ==
--- NOTE | ~2025-05-05 | US_ITS ---
Limited Abdominal Sonogram: Real-time sonographic imaging of the right upper quadrant was performed. Clinical History: Nonalcoholic fatty liver Findings: The liver appears echogenic, with no evidence of mass lesion or bile duct dilatation. Main portal vein demonstrates normal direction of flow. The gallbladder is well distended, and appears no rmal with no evidence of gallstone or wall thickening. The common bile duct measures 4 mm. The visua lized pancreas, aorta, and IVC are unremarkable. Impression: Diffuse fatty infiltration of liver. Reviewed, dictated and finalized at location M. Impression: Diffuse fatty infiltration of liver.
== END 2025-05-05 08:45 | disposition home or self-care (01) ==
LOC: MICIMG 08:45
PROVIDERS: PCP Emergency Medicine; Visit Provider Internal Medicine Gastroenterology
DX: K76.0 Fatty (change of) liver, not elsewhere classified (principal); B18.1 Chronic viral hepatitis B without delta-agent
CPT/HCPCS: 76705